=== PATIENT | female | born 2000 | race Caucasian/White ===

== ENCOUNTER 2018-05-01 01:15 | Emergency (ER) | payer OTHER, BC ==
[~2018-05-01] VITALS: Ht 172.7 cm; Wt 99.3 kg
[2018-05-01 01:25] VITALS: TEMP 98.3
[2018-05-01] MEDS ORDERED: COLACE 100100 MG/CAP PO (01:42)
[2018-05-01] MEDS ORDERED: PERC2.5TAB PO (01:42)
[2018-05-01] MEDS ORDERED: IBU600 MG PO (01:42)
[2018-05-01] MEDS ORDERED: MILK OF MA400 MG/52 (01:43)
[2018-05-01 02:17] LABS: BASO # 0.1 (0.0-0.2); BASO % 0.6 % (0.0-2.0); EOS # 0.4 (0.0-0.7); EOS % 3.7 % (0-4.0); GRAN # 4.5 (1.4-6.5); GRAN % 47.8 % (42.2-75.2); HEMATOCRIT 39.6 % (35.0-45.0); HEMOGLOBIN 12.8 g/dl (12.0-15.0); LYMPH # 3.8 (1.2-3.4); LYMPH % 39.7 % (20.0-51.0); MEAN CELL VOLUME 84 fl (80.0-95.0); MEAN CORPUSCULAR HEMOGLOBIN 27 pg (26.0-32.0); MEAN CORPUSCULAR HGB CONC 32 g/dl (33.0-37.0); MEAN PLATELET VOLUME 9.9 fl (7.4-10.4); MONO # 0.7 (0.1-0.6); MONO % 7.7 % (1.7-9.3); PLATELET COUNT 318 K/mm3 (130-400); RED BLOOD COUNT 4.71 M/mm3 (4.10-5.30); REDCELL DISTRIBUTION WIDTH-CV 12.8 % (11.5-14.5)
[2018-05-01 02:28] LABS: ALBUMIN 4.4 gm/dL (3.5-5.0); BILIRUBIN,TOTAL 0.2 mg/dL (0.0-1.0); C-REACTIVE PROTEIN 2.1 mg/dL (0.0-0.9); CALCIUM 9.3 mg/dL (8.4-10.2); CREATININE, serum 0.66 mg/dL (0.52-1.25); TOTAL PROTEIN 8.1 gm/dL (6.4-8.2)
[2018-05-01] MEDS ORDERED: CEPHALEXIN500 M1 PO (03:25)
[2018-05-01 03:44] VITALS: BP 115/72; PULSE 90
== END 2018-05-01 03:44 | disposition home or self-care (01) ==
LOC: COL.ER 01:15
PROVIDERS: Nurse Practitioner
DX: G89.18 Other acute postprocedural pain (principal); R10.9 Unspecified abdominal pain; F17.210 Nicotine dependence, cigarettes, uncomplicated; Z90.721 Acquired absence of ovaries, unilateral; Z88.0 Allergy status to penicillin
CPT/HCPCS: J1170; J7030

== ENCOUNTER 2019-04-26 20:27 | Inpatient (IN) | payer OTHER, BC ==
[~2019-04-26] VITALS: Ht 172.7 cm; Wt 95.9 kg
[~2019-04-26 20:27] MED LIST: CEPHALEXIN500 M1 PO; COLACE 100100 MG/CAP PO; IBU600 MG PO; MILK OF MA400 MG/52; PERC2.5TAB PO
[2019-04-26] MEDS ORDERED: DUPIXENT300 MG/2 M SQ (20:39)
[2019-04-26] MEDS ORDERED: METOPROLOL TART75 MG PO (20:47)
[2019-04-26 21:02] LABS: BASO % 0.4 % (0.0-2.0); EOS % 0.1 % (0-4.0); GRAN # 8.3 (1.4-6.5); GRAN % 80.6 % (42.2-75.2); HEMATOCRIT 42.2 % (37.0-47.0); HEMOGLOBIN 13.7 g/dl (12.5-16.0); LYMPH # 1.4 (1.2-3.4); LYMPH % 13.1 % (20.0-51.0); MEAN CELL VOLUME 87 fl (80.0-100.0); MEAN CORPUSCULAR HEMOGLOBIN 28 pg (27.0-31.0); MEAN CORPUSCULAR HGB CONC 33 g/dl (33.0-37.0); MEAN PLATELET VOLUME 10.9 fl (7.4-10.4); MONO # 0.6 (0.1-0.6); MONO % 5.4 % (1.7-9.3); PLATELET COUNT 230 K/mm3 (130-400); RED BLOOD COUNT 4.87 M/mm3 (4.10-5.30); REDCELL DISTRIBUTION WIDTH-CV 12.7 % (11.5-14.5)
[2019-04-26 21:12] LABS: ALANINE AMINOTRANSFERASE 112 U/L (9-52); ALBUMIN 4.5 gm/dL (3.5-5.0); ALKALINE PHOSPHATASE 119 U/L (50-136); ANION GAP 13 mmol/L (7-16); AST,SGOT 152 U/L (15-37); BILIRUBIN,TOTAL 0.3 mg/dL (0.0-1.0); BLOOD UREA NITROGEN 7 mg/dL (7-17); CALCIUM 9.7 mg/dL (8.4-10.2); CARBON DIOXIDE 20 mmol/L (22-30); CHLORIDE 103 mmol/L (98-107); CREATININE, serum 0.71 (0.52-1.25); GLUCOSE 101 mg/dL (74-106); SODIUM 136 mmol/L (137-145); TOTAL PROTEIN 8.6 gm/dL (6.4-8.2)
[2019-04-26 21:25] LABS: TROPONIN-I < 0.012 ng/mL (0.000-0.035)
--- NOTE | 2019-04-26 23:40 | NUR ---
Report called over from ED by LARISA De Santiago. Patient will be brought over soon.
[2019-04-27] VITALS (12 sets, daily range): BP systolic 109–124; BP diastolic 65–92; PULSE 111–138; TEMP 98.5–102.5
--- NOTE | 2019-04-27 | NUR ---
Patient arrives at this time via ER cart. Patient transfers self to unit bed via stand and pivot. Attached patient to unit monitoring equipment. Patient is tachycardic in the 130-140's. Patient has no complaints of pain or SOB. Does state that she can feel her heart racing. Assessment complete. Assessment reveals clear lung sounds in all page, though patient does have a dry cough. HR and rhythm appear regular. Bowel sounds active. Patient is alert and oriented. Patient is febrile at 100.5, but tylenol was just recently given in ED. Patient's parents are at the bedside, Vineet and Lorena. Answered their questions regarding medication and echo in the morning. Oriented patient and family to unit and room. Showed patient how to use call light and controls on the bed. Patient has no further needs at this time. Will continue to monitor. Call light within reach.
[2019-04-27] MEDS ORDERED: ENSKYCE 0.15 MG1 TAB PO (00:21)
--- NOTE | 2019-04-27 04:45 | NUR ---
Patient intermittently awake and restless at this time. SHe has complaints that she feels like her fever is back. Temp checked and is 102.3. Provider to be contacted for another dose of tylenol. Patient has no complaints of pain or SOB. Says she is no longer having dizziness like she was when she first arrived. Patient has no further needs. Vitals remain stable. HR remains tachycardic in the 120's. Will continue to monitor. Call light within reach.
--- NOTE | 2019-04-27 07:47 | NUR ---
Bedside report given to LARISA Conley and LARISA Cee. All medications reviewed. Transfer of care.
--- NOTE | 2019-04-27 08:19 | NUR ---
PATIENT ASSESSED, VITALS TAKEN (STABLE, STILL EXPERIENCING TACHYCARDIA IN THE 120'S). DENIES ANY QUESTIONS OR CONCERNS. WILL CONTINUE TO MONITOR.
--- NOTE | 2019-04-27 10:54 | NUR ---
Initial visit; Patient thanked [facility] for looking in on her and offering God's blessings.
[2019-04-27 11:49] LABS: INR 1.3 (0.8-3.0)
[2019-04-27 12:02] LABS: MUCOUS Present /lpf; PH 5 (5-8); URINE APPEARANCE Hazy; URINE BACTERIA Rare /hpf; URINE BILIRUBIN Negative (NEGATIVE); URINE BLOOD 1+ (NEGATIVE); URINE COLOR Yellow; URINE GLUCOSE Negative (NEGATIVE); URINE KETONE Trace (NEGATIVE); URINE LEUKOCYTE ESTERASE Trace (NEGATIVE); URINE NITRATE Negative (NEGATIVE); URINE PROTEIN(semi-quant) Negative (NEGATIVE); URINE RBC 0-2 /hpf; URINE UROBILINOGEN Negative (NEGATIVE)
[2019-04-27 12:06] LABS: COLLECTION METHOD CLEAN CATCH
--- NOTE | 2019-04-27 14:55 | NUR ---
SW met with patient to discuss discharge planning. Patient lives in [place] with her parents. Patients PCP is Alejandra Ricardo and she obtains her medications from [facility]. There are no anticipated discharge needs at this time.
--- NOTE | 2019-04-27 17:45 | NUR ---
REPORT GIVEN TO LARISA SCOTT. PATIENT TRANSFERRED TO MEDICAL FLOOR VIA WHEELCHAIR BY THIS RN AND LARISA MALDONADO.
--- NOTE | 2019-04-27 17:50 | NUR ---
Patient arrived to room 319 from ICU at this time, she is alert/oriented, vital signs stable / still tachycardid HR 113 / Cardiology ok as long as HR <130, denies any pain or discomfort, family present , denies other needs at this time
[2019-04-28 03:50] VITALS: BP 91/50; PULSE 98; TEMP 98.4
--- NOTE | 2019-04-28 04:23 | NUR ---
Denies pain. Resting more comfortable at this time. States she has been getting some sleep. Tylenol 325mg po given at this time per pt req.
[2019-04-28 08:32] VITALS: BP 122/73; PULSE 86; TEMP 98.2
[2019-04-28 10:12] LABS: BASO % 0.4 % (0.0-2.0); EOS % 0.6 % (0-4.0); GRAN # 2.9 (1.4-6.5); GRAN % 58.2 % (42.2-75.2); HEMATOCRIT 35.9 % (37.0-47.0); HEMOGLOBIN 11.7 g/dl (12.5-16.0); LYMPH # 1.7 (1.2-3.4); LYMPH % 33.4 % (20.0-51.0); MEAN CELL VOLUME 86 fl (80.0-100.0); MEAN CORPUSCULAR HEMOGLOBIN 28 pg (27.0-31.0); MEAN CORPUSCULAR HGB CONC 33 g/dl (33.0-37.0); MEAN PLATELET VOLUME 10.7 fl (7.4-10.4); MONO # 0.3 (0.1-0.6); MONO % 6.8 % (1.7-9.3); PLATELET COUNT 167 K/mm3 (130-400); RED BLOOD COUNT 4.19 M/mm3 (4.10-5.30); REDCELL DISTRIBUTION WIDTH-CV 13.1 % (11.5-14.5)
[2019-04-28 10:23] LABS: ALBUMIN 3.5 gm/dL (3.5-5.0); BILIRUBIN,TOTAL 0.2 mg/dL (0.0-1.0); CALCIUM 8.7 mg/dL (8.4-10.2); CHOLESTEROL RISK RATIO 2.3; CREATININE, serum 0.48 (0.52-1.25); POTASSIUM 3.9 mmol/L (3.4-5.0); TOTAL PROTEIN 6.9 gm/dL (6.4-8.2)
[2019-04-28 12:36] VITALS: BP 118/86; PULSE 113; TEMP 99.4
--- NOTE | 2019-04-28 17:11 | NUR ---
Pt assessment complete and charted. Pt has had uneventful day. Up to shower, independent in room, on room air. Denies chest pain, dizziness, N/V, SOB. Per pt she "can tell when her temp gets higher". Highest temp this shift has been 99.4, mildly tachycardic. Pt alernating between tylenol and motrin. Pt a little flushed in the face. RAC IV w/ IVF infusing @ 150 ml/hr w/ no complications, wrapped with kirby bandage. Pt has had family at bedside all day. Pt asking about reason for multiple blood draws. Lactic labs are being done. All other questions answered. No other needs at this time.
[2019-04-28 17:36] VITALS: BP 121/84; PULSE 93; TEMP 98.4
[2019-04-28 20:00] VITALS: BP 121/56; PULSE 93; TEMP 98
--- NOTE | 2019-04-28 20:00 | NUR ---
Patient report received from LARISA Bansal at shift change. Upon assessment at this time patient is resting comfortably in bed, denies pain, n/v or chills. Patient has fluids infusing through Right AC IV. Tele in place, SR @ 91. No needs reported at this time.
[2019-04-29 00:09] VITALS: BP 121/91; PULSE 90; TEMP 98.3
[2019-04-29 04:23] VITALS: BP 1157/71; PULSE 86; TEMP 97.9
--- NOTE | 2019-04-29 06:55 | NUR ---
Report given to Nimisha PERES.
[2019-04-29 07:02] LABS: HEMOGLOBIN 11.2 g/dl (12.5-16.0); MEAN CELL VOLUME 87 fl (80.0-100.0); MEAN CORPUSCULAR HEMOGLOBIN 28 pg (27.0-31.0); MEAN CORPUSCULAR HGB CONC 32 g/dl (33.0-37.0); MEAN PLATELET VOLUME 10.8 fl (7.4-10.4); PLATELET COUNT 161 K/mm3 (130-400); RED BLOOD COUNT 4.01 M/mm3 (4.10-5.30); REDCELL DISTRIBUTION WIDTH-CV 13.2 % (11.5-14.5)
[2019-04-29 07:11] LABS: HEMATOCRIT 34.7 % (37.0-47.0)
[2019-04-29 07:12] LABS: ALBUMIN 3.4 gm/dL (3.5-5.0); BILIRUBIN,TOTAL 0.1 mg/dL (0.0-1.0); CALCIUM 8.5 mg/dL (8.4-10.2); CREATININE, serum 0.46 (0.52-1.25); POTASSIUM 3.9 mmol/L (3.4-5.0); TOTAL PROTEIN 6.7 gm/dL (6.4-8.2)
[2019-04-29 07:24] VITALS: BP 121/80; PULSE 88; TEMP 97.8
[2019-04-29 08:11] LABS: BAND 5 % (0-10); EOSINOPHIL 1 % (0-4); LYMPHOCYTE 66 % (20.0-51.0); NEUTROPHILS 24 % (42.0-75.2); PLATELET ESTIMATE NORMAL (NORMAL)
--- NOTE | 2019-04-29 09:47 | NUR ---
Pt assessment completed and charted. Pt sitting in bed w/ family at bedside. RAC IVF running at 150 ml/hr with no complications. Pt denies dizziness, SOB, N/V, chest pain. Pt on room air and independent in room. No fevers noted overnight. BP WNL. No other needs at this time. Call light within reach.
[2019-04-29] MEDS ORDERED: OMNICEF 300MG300 MG PO (11:13)
[2019-04-29 11:37] VITALS: BP 120/83; PULSE 92; TEMP 98
--- NOTE | 2019-04-29 14:00 | NUR ---
Patient discharge instructions discussed and reviewed. All questions answered, no further needs. RAC IV dc'd w/ catheter tip intact and no complications. Escorted out, pt ambulatory, no issues.
== END 2019-04-29 14:00 | disposition home or self-care (01) | DRG 871 ==
LOC: COL.ER 20:27 → ICU 22:58 → MEDICAL 04-27 18:01
PROVIDERS: Emergency Medicine; Nurse Practitioner Family; Physician Assistant; ADMIT Internal Medicine Interventional Cardiology
DX: A41.9 Sepsis, unspecified organism (principal); J18.9 Pneumonia, unspecified organism; N83.209 Unspecified ovarian cyst, unspecified side; K76.0 Fatty (change of) liver, not elsewhere classified; Z87.891 Personal history of nicotine dependence; Z88.0 Allergy status to penicillin; Z86.14 Personal history of Methicillin resistant Staphylococcus aureus infection
CPT/HCPCS: 99223; 99233-AI; 99239; A4216; J0153; J0696; J1650; J1956; J7030; Q9967

== ENCOUNTER 2019-09-22 11:05 | Emergency (ER) | payer OTHER, BC ==
[~2019-09-22] VITALS: Ht 172.7 cm; Wt 115.0 kg
[~2019-09-22 11:05] MED LIST changes: +DUPIXENT300 MG/2 M SQ; +ENSKYCE 0.15 MG1 TAB PO; +METOPROLOL TART75 MG PO; +OMNICEF 300MG300 MG PO
[2019-09-22 11:07] VITALS: TEMP 98.2
[2019-09-22 12:42] LABS: BASO # 0.1 (0.0-0.2); BASO % 0.9 % (0.0-2.0); EOS # 0.2 (0.0-0.7); EOS % 1.8 % (0-4.0); GRAN # 4.6 (1.4-6.5); GRAN % 56.1 % (42.2-75.2); HEMATOCRIT 40.4 % (37.0-47.0); HEMOGLOBIN 12.7 g/dl (12.5-16.0); LYMPH % 36.7 % (20.0-51.0); MEAN CELL VOLUME 88 fl (80.0-100.0); MEAN CORPUSCULAR HEMOGLOBIN 28 pg (27.0-31.0); MEAN CORPUSCULAR HGB CONC 31 g/dl (33.0-37.0); MEAN PLATELET VOLUME 11.3 fl (7.4-10.4); MONO # 0.4 (0.1-0.6); MONO % 4.3 % (1.7-9.3); PLATELET COUNT 258 K/mm3 (130-400); RED BLOOD COUNT 4.59 M/mm3 (4.10-5.30); REDCELL DISTRIBUTION WIDTH-CV 12.5 % (11.5-14.5)
[2019-09-22 13:06] LABS: ALBUMIN 4.4 gm/dL (3.5-5.0); BILIRUBIN,TOTAL 0.2 mg/dL (0.0-1.0); C-REACTIVE PROTEIN 1.5 mg/dL (0.0-0.9); CALCIUM 9.3 mg/dL (8.4-10.2); CREATININE, serum 0.65 (0.52-1.25); POTASSIUM 3.9 mmol/L (3.4-5.0); TOTAL PROTEIN 8.2 gm/dL (6.4-8.2)
[2019-09-22 14:00] VITALS: BP 113/70; PULSE 81
== END 2019-09-22 14:17 | disposition home or self-care (01) ==
LOC: COL.ER 11:05
PROVIDERS: Nurse Practitioner
DX: R07.89 Other chest pain (principal); Z87.891 Personal history of nicotine dependence